=== PATIENT | male | born 1950 | race Caucasian/White ===

== ENCOUNTER 2019-11-25 22:19 | Emergency (ER) | payer MEDICARE ==
[2019-11-25] MEDS ORDERED: Lidocaine 2% 20 ml MDV ONE (23:13)
--- NOTE | 2019-11-25 23:18 | RAD ---
Right hand 3 views HISTORY: Hand pain. FINDINGS: Scattered mild osteoarthritic changes. Mild ulnar negative variant. Small well corticated oval ossification adjacent to the medial base of the lunate may represent an ol d ununited ossific avulsion or other intracapsular loose body. Immediately adjacent to the base of the ulnar styloid is a very thin, linear 0.6 cm calcification ayana t may represent an embedded foreign body. No acute osseous abnormalities are otherwise demonstrated.
[2019-11-25] MEDS ORDERED: Bacitracin 1 PK ONE (23:30)
[2019-11-25] MEDS ORDERED: Cephalexin 500 MG CAP ONE (23:47)
== END 2019-11-25 23:54 | disposition home or self-care (01) ==
LOC: MADERS 22:19
DX: S61.411A Laceration without foreign body of right hand, initial encounter (principal); I10 Essential (primary) hypertension; Z87.442 Personal history of urinary calculi; Z79.899 Other long term (current) drug therapy; W45.8XXA Other foreign body or object entering through skin, initial encounter
CPT/HCPCS: 12001

== ENCOUNTER 2020-11-07 22:56 | Emergency (ER) | payer MEDICARE ==
[2020-11-07] MEDS ORDERED: diphenhydrAMINE 25 MG CAP ONE (23:29)
== END 2020-11-07 23:37 | disposition home or self-care (01) ==
LOC: MADERS 22:56
DX: L50.9 Urticaria, unspecified (principal); E78.5 Hyperlipidemia, unspecified; E78.00 Pure hypercholesterolemia, unspecified; I10 Essential (primary) hypertension; Z87.442 Personal history of urinary calculi
CPT/HCPCS: 99282; Q0163